=== PATIENT | male | born 1985 | race Caucasian/White ===

== ENCOUNTER 2017-04-17 09:37 | Emergency (ER) | payer MEDICAID ==
[~2017-04-17] VITALS: Ht 170.2 cm; Wt 93.6 kg
[2017-04-17 09:44] VITALS: Ht 170.2 cm; Wt 93.6 kg
[2017-04-17] MEDS ORDERED: LIDOCAINE 1% (MDV) 20 ML INJ ONE (10:54)
[2017-04-17] MEDS ORDERED: CEFTRIAXONE 250 MG INJ IM ONE (11:00)
[2017-04-17] MEDS ORDERED: LORAZEPAM 1 MG TAB PO ONE (11:00)
[2017-04-17] MEDS ORDERED: AZITHROMYCIN 250 MG TAB PO ONE (11:00)
[2017-04-17] MEDS ORDERED: DOXY100T20 PO (14:14)
[2017-04-17] MEDS ORDERED: ALPR0.5T PO (14:14)
--- NOTE | 2017-04-17 14:20 | ERD ---
ER Documentation Chief Complaint Chief Complaint abd pain radiating to back x 2 weeks , used marijuana today HPI This is a 31-year-old male who is here because of anxiety reaction. The patient says that he ate edible marijuana this morning and he did this because he was having an anxiety attack because he was told by his lover that the lover has chlamydia and gonorrhea and the patient had performed oral sex on this person last week. Patient says he started to get a sore throat over the past 2 days is not having any fever difficulty breathing or handling saliva. ROS All systems reviewed and are negative except as per history of present illness. Medications Home Meds Active Scripts Alprazolam* (Xanax*) 0.5 Mg Tab, 0.5 MG PO Q8H Y for ANXIETY, #14 TAB Prov:MARIAH JACKSON DO 04/17/17 Doxycycline Hyclate* (Doxycycline Hyclate*) 100 Mg Tablet.dr, 100 MG PO BID for 10 Days, TAB Prov:MARIAH JACKSON DO 04/17/17 Allergies Allergies: Coded Allergies: No Known Allergy (Unverified , 04/17/17) PMhx/Soc Medical and Surgical Hx: pt denies Medical Hx, pt denies Surgical Hx Hx Alcohol Use: No Hx Substance Use: No Hx Tobacco Use: No Smoking Status: Never smoker FmHx Family History: No coronary disease Physical Exam Vitals Vital Signs Date Time Temp Pulse Resp B/P Pulse Ox O2 Delivery O2 Flow Rate FiO2 04/17/17 09:44 97.7 98 18 120/74 100 Physical Exam Const: Well-developed, well-nourished Head: Atraumatic, normocephalic Eyes: Normal Conjunctiva, PERRLA, EOMI, normal sclera, no nystagmus ENT: Normal External Ears, Nose and Mouth, moist mucus membranes, slight oropharyngeal erythema. Neck: Full range of motion. No meningismus, no lymphadenopathy. Resp: Clear to auscultation bilaterally, no wheezing, rhonchi, rales Cardio: Regular rate and rhythm, no murmurs, S1 S2 present Abd: Soft, non tender x 4, non distended. Normal bowel sounds, no guarding or rebound, no pulsitile abdominal masses or bruits Skin: No petechiae or rashes, no ecchymosis , no maculopapular rash Back: No midline or flank tenderness Ext: No cyanosis, or edema, FROM x 4, normal inspection, neurovascularly intact x 4 Neur: Awake and alert, STR 5/5 x 4, sensation intact x 4, no focal findings, cerebellum intact Psych: Slightly anxious Results 24 hrs Current Medications Medications (Trade) Dose Ordered Sig/Soniya Route PRN Reason Start Time Stop Time Status Last Admin Dose Admin Ceftriaxone Sodium (Rocephin) 250 mg ONCE ONCE IM 04/17/17 11:00 04/17/17 11:01 DC 04/17/17 10:59 Azithromycin (Zithromax) 1,000 mg ONCE ONCE PO 04/17/17 11:00 04/17/17 11:01 DC 04/17/17 10:51 Lorazepam (Ativan) 1 mg ONCE ONCE PO 04/17/17 11:00 04/17/17 11:01 DC 04/17/17 10:51 Lidocaine (Xylocaine 1% (Mdv) 20 ml) 20 ml STK-MED ONCE .ROUTE 04/17/17 10:54 04/17/17 10:55 DC Procedures/MDM Patient was given some Ativan and Rocephin IM with Zithromax 1 g p.o. The patient may have gonococcal pharyngitis we will treat accordingly discharge with doxycycline and Xanax for anxiety Departure Diagnosis: Primary Impression: Substance abuse Additional Impressions: Anxiety Pharyngitis Pharyngitis/tonsillitis etiology: other specified organisms Qualified Code: J02.8 - Pharyngitis due to other organism Condition: Stable Patient Instructions: Substance abuse, Anxiety Reaction, Pharyngitis, Viral MARIAH JACKSON DO Apr 17, 2017 14:20
== END 2017-04-17 14:30 | disposition home or self-care (01) ==
LOC: E/R 09:37
DX: F12.10 Cannabis abuse, uncomplicated (principal); F41.9 Anxiety disorder, unspecified; J02.8 Acute pharyngitis due to other specified organisms; B96.89 Other specified bacterial agents as the cause of diseases classified elsewhere
CPT/HCPCS: 96372; J0696; Z7502; Z7610